=== PATIENT | female | born 1950 | race Asian ===

== ENCOUNTER 2025-11-20 12:15 | Emergency (ER) | payer BC ==
[~2025-11-20] VITALS: Ht 160 cm; Wt 68.0 kg
[2025-11-20 12:32] VITALS: O2SAT 98
[2025-11-20 15:26] VITALS: BP 137/74; PULSE 81; RESP 16; TEMP 36.8; O2SAT 99
== END 2025-11-20 15:29 | disposition home or self-care (01) ==
LOC: ER 12:15
DX: H61.23 Impacted cerumen, bilateral (principal); E78.00 Pure hypercholesterolemia, unspecified; I10 Essential (primary) hypertension
CPT/HCPCS: 99282